=== PATIENT | male | born 1945 | race Caucasian/White ===

== ENCOUNTER 2017-08-11 18:19 | Inpatient (IN) | payer MEDICARE, MEDICAID ==
[~2017-08-11] VITALS: Ht 182.9 cm; Wt 119.2 kg
[~2017-08-11 18:19] MED LIST: ALBU8HFA IH; CLON0.3T PO; INSLAN SQ
[2017-08-11] MEDS ORDERED: ASPI81 PO (19:09)
[2017-08-11] MEDS ORDERED: MELA1TAB28 PO (19:09)
[2017-08-11] MEDS ORDERED: PREG75 PO (19:09)
[2017-08-11] MEDS ORDERED: HYDR25TA84 PO (19:09)
[2017-08-11] MEDS ORDERED: ATOR20TA86 PO (19:09)
[2017-08-11] MEDS ORDERED: UMEC1DIS IH (19:09)
[2017-08-11] MEDS ORDERED: BENZ-51 PO (19:09)
[2017-08-11] MEDS ORDERED: ALBU8HFA IH (19:09)
[2017-08-11] MEDS ORDERED: BUDE10.2 IH (19:09)
[2017-08-11] MEDS ORDERED: KDUR20 PO (19:09)
[2017-08-11] MEDS ORDERED: NITR.4 SL (19:09)
[2017-08-11] MEDS ORDERED: BUME1TAB17 PO (19:09)
[2017-08-11] MEDS ORDERED: INSU100V12 SQ (19:09)
[2017-08-11] MEDS ORDERED: FENO160 PO (19:09)
[2017-08-11] MEDS ORDERED: PREG50 PO (19:15)
[2017-08-11] MEDS ORDERED: FENO145T20 PO (19:15)
[2017-08-11] MEDS ORDERED: MELA3TAB66 PO (19:15)
[2017-08-11] MEDS ORDERED: ALBUTEROL SULFATE 2.5 MG/0.5 ML NEB SOLUTION NEB ONE (19:20)
[2017-08-11 19:44] LABS: BASOPHILS % (AUTO) 0.2 % (0.0-2.0); EOSINOPHILS % (AUTO) 2.8 % (1.0-6.0); HEMATOCRIT 41.4 % (41-53); LYMPHOCYTES # (AUTO) 0.7 K/uL (1.0-4.8); LYMPHOCYTES % (AUTO) 7.9 % (22.0-44.0); MEAN CORPUSCULAR HGB CONC 33.9 G/dL (31.0-37.0); MEAN CORPUSCULAR VOLUME 91 fL (80-100); MONOCYTES # (AUTO) 0.7 K/uL (0.1-1.0); MONOCYTES % (AUTO) 7.7 % (2.0-9.0); NEUTROPHILS # (AUTO) 7.4 K/uL (1.8-7.7); NEUTROPHILS % (AUTO) 81.4 % (40.0-70.0); PLATELET COUNT (AUTO) 149 K/uL (150-450); RED BLOOD CELL COUNT(AUTO) 4.53 MIL/uL (4.50-5.90); RED CELL DISTRIBUTION WIDTH 14.5 % (11.5-14.5)
[2017-08-11] MEDS ORDERED: 0.9% SODIUM CHLORIDE 5 ML NEB SOLUTION NEB ONE (19:48)
[2017-08-11 19:53] LABS: ANION GAP 8 mmol/L (8-16); CALCIUM, TOTAL 8.7 mg/dL (8.8-10.5); CARBON DIOXIDE 28 mmol/L (22-29); CHLORIDE 105 mmol/L (98-107); CREATININE 1.46 mg/dL (0.60-1.30); GLOMERULAR FILTR. RATE CALC 48 mL/min (>60); SODIUM SERUM 141 mmol/L (136-145); UREA NITROGEN, BLOOD 20 mg/dL (7-18)
[2017-08-11 20:00] LABS: ALANINE AMINOTRANSFERASE 37 U/L (12-78); ALBUMIN 3.1 g/dL (3.4-5.0); ASPARTATE AMINOTRANSFERASE 27 U/L (15-37); BILIRUBIN,TOTAL 0.7 mg/dL (0.1-1.0); CREATINE KINASE, TOTAL 62 U/L (39-308); PROTHROMBIN TIME 10.7 SEC (9.4-11.6); TOTAL PROTEIN, SERUM 6.9 g/dL (6.4-8.2)
[2017-08-11 20:35] LABS: B-TYPE NATRIURETIC PEPTIDE 126 pg/mL (0-100)
[2017-08-11 20:57] LABS: INFLUENZA TYPE B NEGATIVE FOR TYPE B (NEGATIVE)
[2017-08-11] MEDS ORDERED: OSELTAMIVIR PHOSPHATE 75 MG CAPSULE PO ONE (21:45)
[2017-08-11] MEDS ORDERED: ACETAMINOPHEN 650 MG/ISO-OSM 65 ML IV ONE (22:00)
[2017-08-11] MEDS ORDERED: LEVOFLOXACIN 500 MG/D5% WATER 100 ML IV ONE (22:00)
[2017-08-11] MEDS ORDERED: ONDANSETRON HCL 4 MG/2 ML VIAL IVP PRN (22:15)
[2017-08-11] MEDS ORDERED: ACETAMINOPHEN 325 MG TABLET PO PRN (22:15)
[2017-08-11] MEDS ORDERED: 0.9% SODIUM CHLORIDE 10 ML SYRINGE IVP PRN (22:15)
[2017-08-11 22:34] LABS: APPEARANCE,URINE CLEAR (CLEAR); GLUCOSE, URINE (UA) NEGATIVE (NEGATIVE); KETONES,URINE 40 mg/dL (NEGATIVE); LEUKOCYTE ESTERASE ,URINE NEGATIVE (NEGATIVE); OCCULT BLOOD,URINE NEGATIVE (NEGATIVE); PH,URINE 7.5 (5.0-8.0)
[2017-08-11 22:39] LABS: ADD UA MICROSCOPIC NO; PROTEIN,URINE NEGATIVE (NEGATIVE)
[2017-08-11] MEDS: IPRATROPIUM BROMIDE 0.5 MG/2.5 ML NEB SOLUTION NEB SCH (23:13)
[2017-08-11] MEDS: ALBUTEROL SULFATE 2.5 MG/0.5 ML NEB SOLUTION NEB SCH (23:13)
[2017-08-11 23:41] VITALS: BP 132/70
[2017-08-12] MEDS ORDERED: IPRATROPIUM BROMIDE 0.5 MG/2.5 ML NEB SOLUTION NEB PRN (01:15)
[2017-08-12] MEDS ORDERED: ALBUTEROL SULFATE 2.5 MG/0.5 ML NEB SOLUTION NEB PRN ×2 (01:15→03:30)
[2017-08-12] MEDS: IPRATROPIUM BROMIDE 0.5 MG/2.5 ML NEB SOLUTION NEB SCH ×4 (01:40→19:28)
[2017-08-12] MEDS: ALBUTEROL SULFATE 2.5 MG/0.5 ML NEB SOLUTION NEB SCH ×4 (01:40→19:28)
[2017-08-12] MEDS ORDERED: NITROGLYCERIN 0.4 MG SUBLINGUAL TABLET #25 SL PRN (03:30)
[2017-08-12] MEDS: ALBUTEROL SULFATE 2.5 MG/0.5 ML NEB SOLUTION NEB PRN ×2 (04:46→12:34)
[2017-08-12] MEDS: IPRATROPIUM BROMIDE 0.5 MG/2.5 ML NEB SOLUTION NEB PRN ×2 (04:46→12:34)
[2017-08-12 04:50] VITALS: BP 190/92
[2017-08-12] MEDS ORDERED: AmLODIPine BESYLATE 10 MG TABLET PO ONE (05:00)
[2017-08-12] MEDS: ACETAMINOPHEN 325 MG TABLET PO PRN (05:12)
[2017-08-12 07:22] LABS: BASOPHILS # (AUTO) 0.01 K/uL (0.00-0.20); BASOPHILS % (AUTO) 0.1 % (0.0-2.0); EOSINOPHILS # (AUTO) 0.07 K/uL (0.00-0.70); EOSINOPHILS % (AUTO) 0.79 % (1.0-6.0); HEMATOCRIT 37.5 % (41-53); HEMOGLOBIN 12.8 g/dL (13.5-17.5); LYMPHOCYTES # (AUTO) 0.5 K/uL (1.0-4.8); LYMPHOCYTES % (AUTO) 5.7 % (22.0-44.0); MEAN CORPUSCULAR HGB CONC 34.2 G/dL (31.0-37.0); MEAN CORPUSCULAR VOLUME 90 fL (80-100); MONOCYTES # (AUTO) 1.1 K/uL (0.1-1.0); MONOCYTES % (AUTO) 11.9 % (2.0-9.0); NEUTROPHILS # (AUTO) 7.3 K/uL (1.8-7.7); NEUTROPHILS % (AUTO) 81.6 % (40.0-70.0); PLATELET COUNT (AUTO) 137 K/uL (150-450); RED BLOOD CELL COUNT(AUTO) 4.15 MIL/uL (4.50-5.90); RED CELL DISTRIBUTION WIDTH 14.5 % (11.5-14.5); WHITE BLOOD COUNT (AUTO) 8.9 K/uL (4.5-11.0)
[2017-08-12 07:39] LABS: ALBUMIN 2.8 g/dL (3.4-5.0); BILIRUBIN,TOTAL 0.9 mg/dL (0.1-1.0); CALCIUM, TOTAL 8.2 mg/dL (8.8-10.5); CREATININE 1.51 mg/dL (0.60-1.30); POTASSIUM 3.8 mmol/L (3.5-5.1); TOTAL PROTEIN, SERUM 6.4 g/dL (6.4-8.2)
[2017-08-12 08:30] VITALS: BP 94/53
[2017-08-12] MEDS: PREGABALIN 50 MG CAPSULE PO SCH ×2 (08:49→21:36)
[2017-08-12] MEDS: FENOFIBRATE 48 MG TABLET PO SCH (08:50)
[2017-08-12] MEDS: ASPIRIN 81 MG CHEWABLE TABLET PO SCH (08:50)
[2017-08-12] MEDS: POTASSIUM CHLORIDE 20 MEQ ER TABLET PO SCH (08:50)
[2017-08-12] MEDS: BENZONATATE 100 MG CAPSULE PO SCH ×3 (08:50→21:35)
[2017-08-12] MEDS: ATORVASTATIN CALCIUM 20 MG TABLET PO SCH (08:50)
[2017-08-12] MEDS: OSELTAMIVIR PHOSPHATE 75 MG CAPSULE PO SCH ×2 (08:50→21:36)
[2017-08-12] MEDS: BUMETANIDE 1 MG TABLET PO SCH (08:51)
[2017-08-12] MEDS: BUDESONIDE/FORMOTEROL FUMARATE 160-4.5 MCG/PUFF 6.9 GM INHALER IH SCH ×3 (08:57→21:43)
[2017-08-12] MEDS: HydrALAZINE HCL 25 MG TABLET PO SCH (09:00)
[2017-08-12] MEDS: HEPARIN SODIUM,PORCINE 5,000 UNITS/ML VIAL SQ SCH ×2 (10:45→21:00)
[2017-08-12 11:57] VITALS: BP 118/56
[2017-08-12 15:31] VITALS: BP 111/62
[2017-08-12 19:38] VITALS: BP 109/58
[2017-08-12] MEDS ORDERED: MELATONIN 3 MG TABLET PO SCH (21:00)
[2017-08-13 00:07] VITALS: BP 101/55
[2017-08-13] MEDS: ACETAMINOPHEN 325 MG TABLET PO PRN (00:43)
[2017-08-13] MEDS: IPRATROPIUM BROMIDE 0.5 MG/2.5 ML NEB SOLUTION NEB SCH ×3 (02:00→14:54)
[2017-08-13] MEDS: ALBUTEROL SULFATE 2.5 MG/0.5 ML NEB SOLUTION NEB SCH ×3 (02:00→14:54)
[2017-08-13] MEDS: ALBUTEROL SULFATE 2.5 MG/0.5 ML NEB SOLUTION NEB PRN (02:09)
[2017-08-13] MEDS: IPRATROPIUM BROMIDE 0.5 MG/2.5 ML NEB SOLUTION NEB PRN (02:09)
[2017-08-13 05:14] VITALS: BP 114/50
[2017-08-13 07:31] VITALS: BP 108/66
[2017-08-13] MEDS: BUDESONIDE/FORMOTEROL FUMARATE 160-4.5 MCG/PUFF 6.9 GM INHALER IH SCH (09:00)
[2017-08-13] MEDS: HEPARIN SODIUM,PORCINE 5,000 UNITS/ML VIAL SQ SCH (09:00)
[2017-08-13] MEDS: BENZONATATE 100 MG CAPSULE PO SCH ×2 (09:45→15:48)
[2017-08-13] MEDS: ASPIRIN 81 MG CHEWABLE TABLET PO SCH (09:46)
[2017-08-13] MEDS: ATORVASTATIN CALCIUM 20 MG TABLET PO SCH (09:46)
[2017-08-13] MEDS: POTASSIUM CHLORIDE 20 MEQ ER TABLET PO SCH (09:46)
[2017-08-13] MEDS: OSELTAMIVIR PHOSPHATE 75 MG CAPSULE PO SCH (09:47)
[2017-08-13] MEDS: PREGABALIN 50 MG CAPSULE PO SCH (09:47)
[2017-08-13] MEDS: BUMETANIDE 1 MG TABLET PO SCH (09:48)
[2017-08-13] MEDS: FENOFIBRATE 48 MG TABLET PO SCH (09:48)
[2017-08-13] MEDS: HydrALAZINE HCL 25 MG TABLET PO SCH (09:48)
[2017-08-13 11:27] VITALS: BP 103/52
[2017-08-13] MEDS ORDERED: OSEL75 PO (14:47)
[2017-08-13 15:34] VITALS: BP 144/60
== END 2017-08-13 18:35 | disposition home or self-care (01) | DRG 193 ==
LOC: EMS 18:21 → 5S 22:20
PROVIDERS: ADMIT Internal Medicine; ATTEND Internal Medicine
DX: J10.1 Influenza due to other identified influenza virus with other respiratory manifestations (principal); J96.20 Acute and chronic respiratory failure, unspecified whether with hypoxia or hypercapnia; E44.0 Moderate protein-calorie malnutrition; I13.0 Hypertensive heart and chronic kidney disease with heart failure and stage 1 through stage 4 chronic kidney disease, or unspecified chronic kidney disease; I50.40 Unspecified combined systolic (congestive) and diastolic (congestive) heart failure; E11.22 Type 2 diabetes mellitus with diabetic chronic kidney disease; G62.9 Polyneuropathy, unspecified; J40 Bronchitis, not specified as acute or chronic; E66.9 Obesity, unspecified; I25.10 Atherosclerotic heart disease of native coronary artery without angina pectoris; N18.3 Chronic kidney disease, stage 3 (moderate); Z79.4 Long term (current) use of insulin; Z82.49 Family history of ischemic heart disease and other diseases of the circulatory system; Z82.5 Family history of asthma and other chronic lower respiratory diseases; Z68.35 Body mass index [BMI] 35.0-35.9, adult; Z83.3 Family history of diabetes mellitus; Z87.891 Personal history of nicotine dependence; Z88.0 Allergy status to penicillin
CPT/HCPCS: 70450; 83605; 87040; 87804; 93005; 94640; 96365; 96375; 99285; J0131; J1644; J1956

== ENCOUNTER 2019-06-28 10:24 | Emergency (ER) | payer MEDICAID, MEDICARE ==
[~2019-06-28] VITALS: Ht 182.9 cm; Wt 100.0 kg
[~2019-06-28 10:24] MED LIST changes: +ASPI81 PO; +ATOR20TA86 PO; +BENZ-51 PO; +BUDE10.2 IH; +BUME1TAB34 PO; -CLON0.3T PO; +FENO145T37 PO; +HYDR25TA84 PO; -INSLAN SQ; +INSU100V12 SQ; +KDUR20 PO; +MELA3TAB66 PO; +NITR0.4T52 SL; +OSEL75 PO; +PREG50 PO; +UMEC1DIS IH
[2019-06-28 10:39] LABS: GLUCOSE,POINT OF CARE 151 MG/DL (70-110)
[2019-06-28] MEDS ORDERED: AZITHROMYCIN 500 MG/NS 250 ML IV ONE (12:15)
[2019-06-28] MEDS ORDERED: CefTRIAXone 1 GM/DEXTROSE 50 ML IV ONE (12:15)
[2019-06-28 12:28] LABS: INFLUENZA TYPE A NEGATIVE FOR TYPE A (NEGATIVE); INFLUENZA TYPE B NEGATIVE FOR TYPE B (NEGATIVE)
[2019-06-28 13:06] LABS: BASOPHILS % (AUTO) 0.3 % (0.0-2.0); EOSINOPHILS % (AUTO) 0.3 % (1.0-6.0); HEMATOCRIT 40.4 % (41-53); HEMOGLOBIN 13.2 g/dL (13.5-17.5); LYMPHOCYTES % (AUTO) 6.3 % (22.0-44.0); MEAN CORPUSCULAR HEMOGLOBIN 28.2 pg (26.0-34.0); MEAN CORPUSCULAR HGB CONC 32.6 G/dL (31.0-37.0); MEAN CORPUSCULAR VOLUME 86 fL (80-100); MONOCYTES # (AUTO) 0.8 K/uL (0.1-1.0); MONOCYTES % (AUTO) 5.1 % (2.0-9.0); NEUTROPHILS # (AUTO) 14.5 K/uL (1.8-7.7); RED BLOOD CELL COUNT(AUTO) 4.68 MIL/uL (4.50-5.90); RED CELL DISTRIBUTION WIDTH 17.5 % (11.5-14.5)
[2019-06-28 13:16] LABS: ANION GAP 8 mmol/L (8-16); CALCIUM, TOTAL 8.3 mg/dL (8.8-10.5); CARBON DIOXIDE 27 mmol/L (22-29); CHLORIDE 102 mmol/L (98-107); CREATININE 1.02 mg/dL (0.60-1.30); GLUCOSE,RANDOM 151 mg/dL (70-110); POTASSIUM 3.9 mmol/L (3.5-5.1); SODIUM SERUM 137 mmol/L (136-145); UREA NITROGEN, BLOOD 13 mg/dL (7-18)
[2019-06-28 13:22] LABS: ALANINE AMINOTRANSFERASE 36 U/L (12-78); ALBUMIN 2.8 g/dL (3.4-5.0); ALKALINE PHOSPHATASE 116 U/L (46-116); ASPARTATE AMINOTRANSFERASE 19 U/L (15-37); BILIRUBIN,TOTAL 1.2 mg/dL (0.1-1.0); TOTAL PROTEIN, SERUM 6.8 g/dL (6.4-8.2)
[2019-06-28 13:24] LABS: PLATELET COUNT (AUTO) 225 K/uL (150-450)
[2019-06-28 13:34] LABS: B-TYPE NATRIURETIC PEPTIDE 139 pg/mL (0-100); GLOMERULAR FILTR. RATE CALC > 60 mL/min (>60)
[2019-06-28 15:20] VITALS: BP 99/62
== END 2019-06-28 15:33 | disposition home or self-care (01) ==
LOC: EMS 10:26
DX: J18.9 Pneumonia, unspecified organism (principal); I25.10 Atherosclerotic heart disease of native coronary artery without angina pectoris; E11.40 Type 2 diabetes mellitus with diabetic neuropathy, unspecified; I10 Essential (primary) hypertension; Z95.1 Presence of aortocoronary bypass graft; Z87.891 Personal history of nicotine dependence; Z79.899 Other long term (current) drug therapy; Z79.82 Long term (current) use of aspirin; Z88.0 Allergy status to penicillin
CPT/HCPCS: 36415; 71045; 80053; 82962; 83880; 84484; 85025; 87804; 93005; 96365; 96368; 99284; J0456; J0696